=== PATIENT | male | born 1940 | race Hispanic/Latino ===

== ENCOUNTER → 2018-07-16 | Outpatient (CLI) | payer MEDICARE ==
[~2018-07-16] MED LIST: REGADENOSON 0.4 MG/5 ML SYR IV ONE
== END ==
LOC: NM 08:42
PROVIDERS: ATTEND Internal Medicine Cardiovascular Disease
DX: R07.2 Precordial pain (principal)
CPT/HCPCS: 78452; 93017; A9502; J2785

== ENCOUNTER 2018-07-30 07:34 | Inpatient (IN) | payer MEDICARE ==
[~2018-07-30] VITALS: Ht 185.4 cm; Wt 98.9 kg
[~2018-07-30 07:34] MED LIST changes: +ASPIR 8181 MG PO; +ATORVASTATIN CA20 MG PO; +AVODART0.5 MG PO; +ETODOLAC500 MG PO; +FLOMAX0.4 MG PO; +LISINOPRIL2.5 MG PO; +NAMENDA10 MG PO; -REGADENOSON 0.4 MG/5 ML SYR IV ONE; +ROPIVACAINE 246.25 MG, EPINEPHRINE HCL 1:1000 1ML 0.5 MG, CLONIDINE HCL 0.08 MG, KETORO... INJ ONE
--- OUTSIDE RECORDS SUMMARY | 2018-07-30 07:37 | XMS REPORT | Clinical Summary ---
Author Author [facility] Organization [facility] Address Unknown Phone Unavailable Care Team Providers Care Landman Name Role Phone Arsh Rios MD PCP Allergies No Known Allergies Medications End Date Status Medication Sig Dispensed Refills Start Date Active metoprolol tartrate Take 50 mg by 0 (LOPRESSOR) 50 mg tablet mouth 2 (two) times a day. Active tamsulosin (FLOMAX) 0.4 Take 0.4 mg 0 mg capsule,extended by mouth release 24hr daily. Active aspirin (ECOTRIN) 81 MG Take 81 mg by 0 enteric coated tablet mouth daily. Active dutasteride (AVODART) 0.5 Take 0.5 mg 0 mg capsule by mouth daily. Active cilostazol (PLETAL) 100 Take 100 mg 0 MG tablet by mouth 2 (two) times a day. Active lisinopril Take 5 mg by 0 (PRINIVIL,ZESTRIL) 5 mg mouth daily. tablet Active acetaminophen (TYLENOL 8 Take 650 mg 0 HOUR) 650 MG 8 hr tablet by mouth 2 (two) times a day. Active folic Take 1 tablet 0 acid/multivit-min/lutein by mouth (CENTRUM SILVER ORAL) daily. Active memantine (NAMENDA) 10 MG Take 10 mg by 0 tablet mouth 2 (two) times a day. Active atorvastatin (LIPITOR) 20 Take 20 mg by 0 MG tablet mouth nightly. 08/04/2017 mupirocin (BACTROBAN) 2 % Apply 60 g 2 ointment topically 2 8 (two) times a day for 10 days. 08/04/2017 doxycycline (VIBRA-TABS) Take 1 tablet 20 tablet 0 100 MG tablet (100 mg 8 total) by mouth 2 (two) times a day for 10 days. 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 Hospital Procedural Cardiology Encounter Juan R Gomez MD Accidental drug overdose, initial encounter (Primary Dx) 05/14/2018 Emergency Emergency Medicine Richard Magallon MD PhD 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 Hospital Procedural Cardiology Encounter Richard Magallon MD PhD Cryptogenic stroke (HCC) 03/20/2018 Hospital Procedural Cardiology Encounter Richard Magallon MD PhD Cryptogenic stroke (HCC) 02/18/2018 Hospital Procedural Cardiology Encounter Richard Magallon MD PhD Cryptogenic stroke ([facility]) 01/19/2018 Hospital Procedural Cardiology Encounter Richard Magallon MD PhD Cryptogenic stroke 12/20/2017 Hospital Procedural Cardiology Encounter Richard Magallon MD PhD Cryptogenic stroke 11/20/2017 Hospital Procedural Cardiology Encounter Richard Magallon MD PhD Cryptogenic stroke 10/21/2017 Hospital Procedural Cardiology Encounter Richard Magallon MD PhD Cryptogenic stroke 09/21/2017 Hospital Procedural Cardiology Encounter Richard Magallon MD PhD Cryptogenic stroke 08/22/2017 Hospital Procedural Cardiology Encounter after 07/29/2017 Social History Date Tobacco Use Types Packs/Day Years Used Never Smoker Smokeless Tobacco: Never Used Alcohol Use Drinks/Week oz/Week Comments Yes Sex Assigned at Date Recorded Not on file Industry Job Start Date Occupation Not on file Not on file Not on file Travel End Travel History Travel Start No recent travel history available. Last Filed Vital Signs Time Taken Vital Sign Reading 05/14/2018 10:38 AM BRAKE COUPLER DINKEY Blood Pressure 136/63 05/14/2018 10:38 AM BRAKE COUPLER DINKEY Pulse 64 05/14/2018 10:10 AM BRAKE COUPLER DINKEY Temperature 36.7 C (98 F) 05/14/2018 10:38 AM BRAKE COUPLER DINKEY Respiratory Rate 18 05/14/2018 10:38 AM BRAKE COUPLER DINKEY Oxygen Saturation 96% - Inhaled Oxygen - Concentration - Weight - - Height - - Body Mass Index - Plan of Treatment Health Maintenance Due Date Last Done Comments SHINGLES VACCINES (#1) 08/07/1989 65+ PNEUMOCOCCAL VACCINE 08/07/2004 (1 of 2 - PCV13) PNEUMOCOCCAL 08/07/2004 POLYSACCHARIDE VACCINE AGE 65 AND OVER INFLUENZA VACCINE 11/07/2018 Implants Device Identifier Shelf Expiration Date Model / Serial / Lot Implanted Type Area Manufactur er 06/06/2018 [id number] / / [id number] System Reveal Linq W/Monitors - Cardiac N/A: N/A [employer]TR[employer] [id number] Pacemakers CARDIAC Implanted: 07/23/2017 (Quantity not and RHYTHM on file) Related DISEASE Products MGMT 07/07/2017 [id number] / / [id number] Device Vasclr Clsr Vasoactive Cardiovasc N/A: N/A Intstnl Peptd 6fr Angio-Seal - ular [id number] Implants Implanted: 09/19/2016 (Quantity not on file) 03/08/2018 [id number] / / [id number] Device Vasclr Clsr Vasoactive Cardiovasc N/A: N/A Intstnl Peptd 6fr Angio-Seal - ular [id number] Implants Implanted: 07/24/2017 (Quantity not on file) [id number] / / Catheter Angio Cleat Layer Ii 5fr 100cm Surgical N/A: N/A [facility] Selc Braidd Torque Alex - [id number] Implants; PERIPHERAL Implanted: 09/19/2016 (Quantity not Expanders; INTERVENTI on file) Extenders; ON Surgical VASCULAR Wires SREEDHAR [id number] / / Catheter Angiography Diag [facility] Surgical N/A: N/A C Torque Cleat Layer Ii 5fr 100cm - Implants; PERIPHERAL [id number] Expanders; INTERVENTI Implanted: 07/24/2017 (Quantity not Extenders; ON on file) Surgical VASCULAR Wires SREEDHAR Procedures Comments Procedure Name Priority Date/Time Associated Diagnosis CV PACEMAKER DEFIB ILR Routine 07/22/2018 Cryptogenic stroke (HCC) INTERROGATION 8:26 AM CDT CV LOOP RECORDER MONITOR Routine 05/27/2018 Cryptogenic stroke (HCC) EVAL <30DAYS 4:38 PM BRAKE COUPLER DINKEY CV LOOP RECORDER MONITOR Routine 04/29/2018 Cryptogenic stroke (HCC) EVAL <30DAYS 3:59 PM BRAKE COUPLER DINKEY CV LOOP RECORDER MONITOR Routine 03/29/2018 Cryptogenic stroke (HCC) EVAL <30DAYS 1:06 PM BRAKE COUPLER DINKEY CV LOOP RECORDER MONITOR Routine 02/01/2018 Cryptogenic stroke (HCC) EVAL <30DAYS 11:09 AM CDT CV LOOP RECORDER MONITOR Routine 01/03/2018 Cryptogenic stroke (HCC) EVAL <30DAYS 3:28 PM CDT CV LOOP RECORDER MONITOR Routine 11/26/2017 Cryptogenic stroke EVAL <30DAYS 1:17 PM CDT CV LOOP RECORDER MONITOR Routine 10/27/2017 Cryptogenic stroke EVAL <30DAYS 1:59 PM CDT CV LOOP RECORDER MONITOR Routine 09/27/2017 Cryptogenic stroke EVAL <30DAYS 8:55 AM CDT CV LOOP RECORDER MONITOR Routine 08/24/2017 Cryptogenic stroke EVAL <30DAYS 1:03 PM CDT after 07/29/2017 Results * CV pacemaker defib or ilr interrogation (07/22/2018 8:26 AM CDT) Narrative Performed At Performing Organization Address [facility] Phone Number [facility] [address] [place] [address] * CV pacemaker defib or ilr interrogation (05/27/2018 4:38 PM BRAKE COUPLER DINKEY) Narrative Performed At Performing Organization Address [facility] Phone Number [facility] [address] [place] [address] * CV pacemaker defib or ilr interrogation (04/29/2018 3:59 PM BRAKE COUPLER DINKEY) Narrative Performed At Performing Organization Address [facility] Phone Number [facility] [address] [place] [address] * Cv pacemaker defib or ilr interrogation (01/03/2018 3:28 PM CDT) Narrative Performed At Performing Organization Address [facility] Phone Number [facility] [address] [place] [address] * Cv pacemaker defib or ilr interrogation (09/27/2017 8:55 AM CDT) Narrative Performed At Performing Organization Address [facility] Phone [facility] [address] [place] [address] * Cv pacemaker defib or ilr interrogation (08/24/2017 1:03 PM CDT) Narrative Performed At Performing Organization Address City/State/Zipcode Phone Number [facility] [address] [place] [address] after 07/29/2017 Insurance Payer Benefit Subscriber ID Type Phone Address Plan / Group [employer] CIGNA xxxxxxxxxxx HMO [employer]ALTH[employer]I NG HMO MCR ADV Advance Directives Patient has advance care planning documents on file. For more information, neyda genao contact: Kirill Ferrari [address] [place] [address]
--- OUTSIDE RECORDS SUMMARY | 2018-07-30 07:37 | XMS REPORT ---
Author [facility] Address Unknown Phone Unavailable Care Team Providers Care Repairer Name Role Phone Unavailable Unavailable Payers Payer Name Policy Type Policy Number Effective Date Expiration Date Problems This patient has no known problems. Allergies, Adverse Reactions, Alerts Allergy Name Allergy Type Status Severity Reaction(s) Onset Date Inactive Date Treating Clinician Comments No Known Allergies DA Active U 2014-08-10 00:00:00 Medications This patient has no known medications. Results Test Description Test Time Test Comments Text Results Atomic Results Result Comments - DUP VEIN ANTHONY 2018-06-27 15:11:00 Name: ARIAS MEDEL [facility] : 1940 Age/S: 77 / M [address] [facility] Unit #: [id number] Loc: [place] [address] Phys: Tierra Ferguson MD Acct: [id number] Dis Date: Status: REG RCR PHONE #: [phone] Exam Date: 06/26/2018 1620 FAX #: [phone] Reason: VARICOSE VEINS AND ULCER EXAMS: CPT CODE: [id number] DUP VEIN ANTHONY [id number] EXAM: Bilateral venous Doppler study; INFORMATION: Venous insufficiency; varicose veins and ulcers; outpatient care; TECHNIQUE an findings: Grayscale and imaging of the venous system of the lower extremities was combined with color Doppler sonography and spectral analysis. Right leg: All vessels including the common femoral vein, the greater saphenous vein, the superficial and deep femoral veins, the popliteal vein and the posterior tibial veins are compressible and patent; there are no interval and phasic with respiration; no thrombosis. The saphenous femoral junction measures 13 mm in diameter. Reflux was noticed at this level over 2815 ms. The greater saphenous vein measured 2.3 mm. Venous reflux was noticed approximately over 936 ms. No reflux was noticed in the mid and distal portion of the thigh. The greater saphenous vein below the knee measured 3.6 mm proximally and reflux was noticed over 1002 ms. No reflux was noticed in the mid and distal portion of the infrapopliteal GSD. The smaller saphenous vein measured 2.6-2.7 mm and showed reflux over 1294 ms proximally and 1168 ms in the midportion. A underwriting specialist vein measured 7 mm with reflux over 1063 ms. Left leg: All veins including the common femoral vein, the superficial and deep femoral vein, the greater saphenous vein, the popliteal vein and the posterior tibial vein were compressible, phasic with respiration and augmentation. No thrombus was noticed. The saphenous femoral junction measured 13 mm and reflux was noticed over 4104 ms. The greater saphenous vein measures 7.6 mm proximally, with reflux over 1134 ms; the midportion of the greater saphenous vein measured 3.8 mm and reflux was noticed over 1327 ms; the distal greater saphenous vein measured 3.7 mm and reflux was noticed over 2694 ms. The infrapopliteal region SMV measured 3.7 mm proximally and reflux was noticed over 6 on 22 ms. No reflux in the midportion of the infrapopliteal G is 3. The distal G is very measured 4 mm and showed reflux over 440 ms. PAGE 1 Signed Report (CONTINUED) Name: ARIAS MEDELULVEDA [facility] : 1940 Age/S: 77 / M [address] [facility] Unit #: [id number] Loc: [place] [address] Phys: Tierra Ferguson MD Acct: [id number] Dis Date: Status: REG RCR PHONE #: [phone] Exam Date: 06/26/2018 1620 FAX #: [phone] Reason: VARICOSE VEINS AND ULCER EXAMS: CPT CODE: [id number] DUP VEIN ANTHONY [id number] <Continued> The small saphenous vein measured 3.4 mm proximally and showed reflux over 1961 ms. No reflux was noticed distally. No reflux was noticed within left underwriting specialist veins. IMPRESSION: 1. The venous system of both lower extremities is patent and without evidence of thrombosis. 2. Significant reflux was noticed in both greater saphenous veins as detailed above. Significant reflux was also noticed in both smaller saphenous veins. at 1511 Reported and signed by: Mio Ruano M.D. CC: Arsh Izaguirre MD; Tierra Ferguson MD Technologist: MARILU GALLO RVT [facility] Date/Time: 06/27/2018 (1511) [email or web address] Orig Print D/T: S: 06/27/2018 (2170) Probe: PAGE 2 Signed Report
[2018-07-30] MEDS ORDERED: BUPIVACAINE 7.5MG/ML /DEXTROSE 82.5MG/ML 2 ML AMP INJ ONE (08:07)
[2018-07-30] MEDS ORDERED: GABAPENTIN 300 MG CAP ONE (08:21)
[2018-07-30] MEDS ORDERED: DEXAMETHASONE SOD PHOS 10 MG/1 ML VIAL ONE (08:21)
[2018-07-30] MEDS ORDERED: CEFAZOLIN SOD 2 GM/D5W 50ML 50 ML IV ONE (08:21)
[2018-07-30] MEDS ORDERED: CELECOXIB 200 MG CAP ONE (08:21)
[2018-07-30] MEDS ORDERED: VANCOMYCIN HCL 1 GM VIAL ONE (09:04)
[2018-07-30] MEDS ORDERED: VANCOMYCIN HCL 500 MG ONE (09:04)
[2018-07-30] MEDS ORDERED: BACITRACIN 50,000 UNIT VIAL ONE ×2 (09:04→09:19)
[2018-07-30] MEDS ORDERED: SODIUM CHLORIDE 0.9% 500ML 500 ML ONE (09:05)
[2018-07-30] MEDS ORDERED: TRANEXAMIC ACID 1,000 MG/10 ML ML ONE (09:05)
[2018-07-30] MEDS: SODIUM CHLORIDE 0.9% 1000ML 1,000 ML IV SCH ×2 (11:22→22:11)
[2018-07-30] MEDS ORDERED: HYDROCODONE/APAP 7.5MG-325MG 1 EA TAB PO PRN (11:30)
[2018-07-30] MEDS ORDERED: HYDROCODONE/APAP 5MG-325MG TAB PO PRN (11:30)
[2018-07-30] MEDS ORDERED: ONDANSETRON HCL INJ 2MG/ML 2ML 2 MG/ML VIAL IV PRN (11:30)
[2018-07-30] MEDS ORDERED: DOCUSATE SODIUM 100 MG CAP PO PRN (11:30)
[2018-07-30] MEDS ORDERED: KETOROLAC TROMETHAMINE 30 MG/ML VIAL IV PRN (11:30)
[2018-07-30] MEDS ORDERED: PROMETHAZINE HCL (IM) 25 MG/ML VIAL IM PRN (11:30)
[2018-07-30] MEDS ORDERED: DIPHENHYDRAMINE HCL INJ 50 MG/ML VIAL IM/IV PRN (11:30)
[2018-07-30] MEDS ORDERED: ACETAMINOPHEN 650 MG SUPP PR PRN (11:30)
[2018-07-30] MEDS ORDERED: MEPERIDINE HCL INJ 25 MG/ML VIAL ONE (11:33)
--- OUTSIDE RECORDS SUMMARY | 2018-07-30 11:44 | XMS REPORT | Clinical Summary ---
Author Author [facility] Address Unknown Phone Unavailable Care Team Providers Care Manager [place] Name Role Phone Arsh Rios MD PCP [...] Encounter Richard Magallon MD PhD Cryptogenic stroke ([facility]) 01/19/2018 Hospital Procedural Cardiology Encounter Richard Magallon [...] Taken Vital Sign Reading 05/14/2018 10:38 AM BEATER WORKER HELPER Blood Pressure 136/63 05/14/2018 10:38 AM BEATER WORKER HELPER Pulse 64 05/14/2018 10:10 AM BEATER WORKER HELPER Temperature 36.7 C (98 F) 05/14/2018 10:38 AM BEATER WORKER HELPER Respiratory Rate 18 05/14/2018 10:38 AM BEATER WORKER HELPER Oxygen Saturation 96% - Inhaled Oxygen - [...] Area Manufactur er 06/06/2018 [id number] / / [id number] System Reveal Linq W/Monitors - Cardiac N/A: N/A [employer] [id number] Pacemakers CARDIAC Implanted: 07/23/2017 (Quantity not and RHYTHM on file) Related DISEASE Products MGMT 07/07/2017 [id number] / / [id number] Device Vasclr Clsr Vasoactive Cardiovasc N/A: N/A Intstnl Peptd 6fr Angio-Seal - ular [id number] Implants Implanted: 09/19/2016 (Quantity not on file) 03/08/2018 [id number] / / [id number] Device Vasclr Clsr Vasoactive Cardiovasc N/A: N/A Intstnl Peptd 6fr Angio-Seal - ular [id number] Implants Implanted: 07/24/2017 (Quantity not on file) [id number] / / Catheter Angio Image Processing Engineer Ii 5fr 100cm Surgical N/A: N/A [facility] Selc Braidd Torque Alex - [id number] Implants; PERIPHERAL Implanted: 09/19/2016 (Quantity not Expanders; INTERVENTI on file) Extenders; ON Surgical VASCULAR Wires SREEDHAR [id number] / / Catheter Angiography Diag [facility] Surgical N/A: N/A C Torque Image Processing Engineer Ii 5fr 100cm - Implants; PERIPHERAL [id number] Expanders; INTERVENTI Implanted: 07/24/2017 (Quantity not Extenders; ON on file) Surgical VASCULAR Wires SREEDHAR Procedures Comments Procedure Name Priority Date/Time Associated Diagnosis CV PACEMAKER DEFIB ILR Routine 07/22/2018 Cryptogenic stroke (HCC) INTERROGATION 8:26 AM CDT CV LOOP RECORDER MONITOR Routine 05/27/2018 Cryptogenic stroke (HCC) EVAL <30DAYS 4:38 PM BEATER WORKER HELPER CV LOOP RECORDER MONITOR Routine 04/29/2018 Cryptogenic stroke (HCC) EVAL <30DAYS 3:59 PM BEATER WORKER HELPER CV LOOP RECORDER MONITOR Routine 03/29/2018 Cryptogenic stroke (HCC) EVAL <30DAYS 1:06 PM BEATER WORKER HELPER CV LOOP RECORDER MONITOR Routine 02/01/2018 Cryptogenic [...] CDT) Narrative Performed At Performing Organization Address [facility] Phone Number [facility] [address] [place] [address] * CV pacemaker defib or ilr interrogation (05/27/2018 4:38 PM BEATER WORKER HELPER) Narrative Performed At Performing Organization Address [facility] Phone Number [facility] [address] [place] [address] * CV pacemaker defib or ilr interrogation (04/29/2018 3:59 PM BEATER WORKER HELPER) Narrative Performed At Performing Organization Address [facility] Phone Number [facility] [address] [place] [address] * Cv pacemaker defib or ilr interrogation (01/03/2018 3:28 PM CDT) Narrative Performed At Performing Organization Address [facility] Phone Number [facility] [address] [place] [address] * Cv pacemaker defib or ilr interrogation (09/27/2017 8:55 AM CDT) Narrative Performed At Performing Organization Address [facility] Phone Number [facility] [address] [place] [address] * Cv pacemaker defib or ilr interrogation (08/24/2017 1:03 PM CDT) Narrative Performed At Performing Organization Address City/State/Zipcode Phone Number [facility] [address] [place] [address] after 07/29/2017 Insurance Payer Benefit Subscriber ID Type Phone Address Plan / Group [employer] CIGNA xxxxxxxxxxx HMO [employer]PRI NG HMO MCR ADV Advance Directives Patient has advance care planning documents on file. For more information, neyda genao contact: Kirill Ferrari [address] [place] [address]
[2018-07-30] MEDS: ACETAMINOPHEN 1000 MG/100 ML IV SCH ×3 (12:00→23:59)
--- NOTE | 2018-07-30 12:58 | NUR ---
ARRIVED VIA STRETCHER FROM PACU, AA&OX3, 2L AT THIS TIME, IV TO L HAND INTACT, R HIP DRESSING CDI, DTV, RUFINO HOSE TO LLE IN PLACE, ORIENTED TO ROOM AND CALL LIGHT SYSTEM, CALL LIGHT WITHIN REACH, FAMILY AT SIDE
--- NOTE | 2018-07-30 13:23 | Diagnostic Imaging Report ---
Exam: AP pelvis History: Pain Comparison: None. Findings: See impression Impression: Right total hip arthroplasty with postsurgical change. No complication. Signed by: Dr. Kj Puente M.D. on 07/30/2018 1:19 PM
[2018-07-30 14:01] VITALS: BP 126/69
[2018-07-30 14:08] VITALS: BP 135/63
--- NOTE | 2018-07-30 15:00 | NUR ---
TOLERATING PO, DENIES PAIN AT THIS TIME, R HIP DRESSING CDI, CALL LIGHT WITHIN REACH
--- NOTE | 2018-07-30 15:56 | Operative Report ---
DATE OF PROCEDURE: 07/30/2018 SURGEON: Sergio Crocker MD BLOW MOLD MACHINE OPERATOR: Vishnu Arboleda, certified PA. PREOPERATIVE DIAGNOSIS: Osteoarthritis, right hip. POSTOPERATIVE DIAGNOSIS: Osteoarthritis, right hip. PROCEDURE: Right total hip arthroplasty. INDICATIONS: The patient is a 77-year-old gentleman, who has osteoarthritis involving his right knee and right hip. We have discussed the findings and options and planned on a right total hip replacement. The risks and benefits of the procedure have been discussed. He and his family state they understand and wished to proceed. PROCEDURE IN DETAIL: The patient was brought to the operating room and placed under general anesthetic. A spinal anesthetic was attempted, but unsuccessful. He was positioned in the left lateral decubitus position. His right hip was prepped and draped in a sterile manner. A preoperative time-out was performed. A posterior approach was made to the right hip. Care was taken to avoid injury to the sciatic nerve. Hemostasis was obtained with electrocautery. A deep self-retaining Charnley retractor was placed. The posterior capsule was exposed. A large plexus of veins was noted around the posterior capsule. Time and care were taken to cauterize and ligate these vessels to minimize bleeding. The short external rotators and the posterior capsule were released. The hip was dislocated and an oscillating saw was used to resect the femoral head. Complete loss of articular cartilage was noted. Acetabular retractors were carefully placed. The remnant of the labrum was excised. The true floor of the acetabulum was established with a 46 mm reamer. The socket was then sequentially reamed to 55 mm. This accomplished hemispherical bleeding cancellous bone. A Vy [employer]omet OsseoTi 56 mm outer diameter socket was seated. On several occasions, the hip had been thoroughly irrigated with a shower tip pulsatile lavage and a spray mixture of polymyxin and vancomycin diluted in saline. Good fixation was felt to obtained. Fixation was augmented with a single 25 mm cancellous screw placed into the ilium. A highly cross-linked polyethylene liner with a 36 mm inner diameter was then seated into place. Care was taken to make sure that there was no evidence of soft tissue interposition. The socket was packed with a moistly soaked lap sponge and attention was directed toward the proximal femur. A box cutting osteotome and taper pin reamer were used to establish entry to the femoral canal. The stem was then sequentially seated with the broaches up until a 13 mm broach. This provided a good canal fill and rotational stability. A trial reduction was performed. A standard 36 mm head provided appropriate soft tissue balancing, stability, and anglican of limb length. The trial implants were removed. The hip was further irrigated with a shower tip pulsatile lavage. The set stem was seated in the head was placed onto the stem. A final reduction was performed. The posterior capsule was carefully repaired using interrupted #2 Ethibond. The iliotibial band and gluteal fascia were closed with #2 Ethibond. The skin was closed with subcuticular Vicryl and danna. A sterile Aquacel bandage was applied. He was returned to the supine position, extubated and transported to the recovery room in stable condition. Blood loss was approximately 150 mL. All needle and sponge counts were correct. Sergio Crocker MD DR/MAYTE /[id number]
[2018-07-30] MEDS: CELECOXIB 200 MG CAP PO SCH (16:27)
[2018-07-30] MEDS: ASPIRIN 325 MG TAB PO SCH (16:27)
[2018-07-30] MEDS: CEFAZOLIN SOD 1 GM/NS 50ML 50 ML IV SCH (16:27)
--- NOTE | 2018-07-30 16:33 | NUR ---
DENIES PAIN AT THIS TIME, CALL LIGHT WITHIN REACH
[2018-07-30] MEDS ORDERED: CELECOXIB 100 MG CAP PO SCH (17:00)
[2018-07-30 17:57] VITALS: BP 108/53
[2018-07-30 19:30] VITALS: BP 108/53
[2018-07-30] MEDS ORDERED: FENTANYL CITRATE/PF 100MCG/2 ML INJ ONE (19:31)
[2018-07-30] MEDS ORDERED: SEVOFLURANE INHAL SOLN 250 ML PEN BTL ONE (19:43)
[2018-07-30] MEDS ORDERED: LIDOCAINE HCL 2% LOCAL INJ 5 ML SDV VIAL INJ ONE (19:43)
[2018-07-30] MEDS ORDERED: ONDANSETRON HCL INJ 2MG/ML 2ML 2 MG/ML VIAL ONE (19:43)
[2018-07-30] MEDS ORDERED: PROPOFOL IV EMULSION 10 MG/ML 20 ML VIAL ONE (19:43)
[2018-07-30] MEDS ORDERED: ROCURONIUM BROMIDE 10 MG/ML 5ML VIAL ONE (19:43)
[2018-07-30 20:00] VITALS: BP 106/57
[2018-07-30] MEDS ORDERED: ZOLPIDEM TARTRATE 5 MG TAB PO PRN (21:00)
[2018-07-31] VITALS: BP 106/55
[2018-07-31] MEDS: CEFAZOLIN SOD 1 GM/NS 50ML 50 ML IV SCH ×2 (01:36→07:46)
[2018-07-31] MEDS: ACETAMINOPHEN 1000 MG/100 ML IV SCH ×2 (01:42→05:04)
[2018-07-31 04:00] VITALS: BP 114/58
[2018-07-31 06:20] LABS: HEMATOCRIT 32.3 % (38.2-49.6); HEMOGLOBIN 10.9 g/dL (14.0-18.0)
[2018-07-31] MEDS: SODIUM CHLORIDE 0.9% 1000ML 1,000 ML IV SCH (07:22)
--- NOTE | 2018-07-31 07:25 | NUR ---
Rcvd patient in report this am. Patient is asleep in bed at this time. No s/s of distress noted
[2018-07-31] MEDS: CELECOXIB 200 MG CAP PO SCH (08:27)
[2018-07-31] MEDS: ASPIRIN 325 MG TAB PO SCH (08:27)
[2018-07-31 09:11] VITALS: BP 114/55
[2018-07-31] MEDS ORDERED: ASPIRIN325 MG PO (09:55)
[2018-07-31] MEDS ORDERED: NORCO 7.5-3251 EACH PO (09:55)
[2018-07-31] MEDS ORDERED: ONDANSETRON HCL 4 MG ORAL DISINTEGRATING TAB PO PRN (10:15)
--- NOTE | 2018-07-31 10:20 | NUR ---
DR GAUTAM OFFICE PREARRANGED FOLLOWING DISCHARGE PLAN OF: HOME HEALTH WITH [facility] [phone] CONFIRMED WITH ALZIA ROSAS 3 IN ONE COMMODE. AND ROLLING WALKER WITH WHEELS. PROVIDED BY THERAPY SUPPLY HOUSE CONFIRMED WITH [employer] ALL EQUIPEMENT DELIVERED 07/29/2018 GAVE COPY OF ORDERS TO FOLLOW UP OUTPATIENT IF ANY QUESTIONS AND FILED IN CHART. IMM SIGNED AND ON CHART COPY LEFT WITH PATIENT GAVE CARD FOR QUESTIONS AND OR CONCERNS.
[2018-07-31 11:06] VITALS: BP 114/55
[2018-07-31] MEDS ORDERED: ACETAMINOPHEN 1000 MG/100 ML IV PRN (11:30)
--- NOTE | 2018-07-31 11:40 | Consultation ---
DATE OF CONSULTATION: REASON FOR CONSULTATION: Postop medical management. HISTORY OF PRESENT ILLNESS: The patient is a gentleman, status post right hip arthroplasty with minimal pain in the hip. Denies any fever, chills, nausea, vomiting, shortness of breath, headache, or chest pain on review of systems. PAST MEDICAL HISTORY: Hyperlipidemia, dementia, BPH, and hypertension. MEDICATIONS: See MAR. ALLERGIES: NONE. SOCIAL HISTORY: , lives at home with his . FAMILY HISTORY: Noncontributory. PHYSICAL EXAMINATION: VITAL SIGNS: Temperature 96.8, pulse 59, blood pressure 106/57, and sats 95% on room air. GENERAL: No apparent distress. NECK: Supple. LUNGS: Clear to auscultation bilaterally. CARDIOVASCULAR: Regular rate and rhythm. ABDOMEN: Good bowel sounds. Soft, nontender. EXTREMITIES: No clubbing or cyanosis. NEUROLOGIC: Nonfocal. ASSESSMENT AND PLAN: 1. Right hip pain. Continue with physical therapy. 2. Anemia. Check CBC. 3. Hypertension. Continue with his medications at discharge. 4. Hyperlipidemia. Continue with his medications at discharge. 5. Benign prostatic hypertrophy. Continue his medications at discharge. Please see hospital chart for full details. MD SNEHA Ingram/MAYTE /[id number]
--- NOTE | 2018-07-31 11:59 | NUR ---
Patient is AAOx3. Patient lung huffman clear to auscultation. Bowel sounds present x4. Patient passing gas. Patient is post op right hip replacement. Dressing clean and dry to hip. No c/o pain. Patient ambulated with therapy. Moderate assist needed. Language barrier noted. Family at bedside
[2018-07-31 12:40] VITALS: BP 112/55
--- NOTE | 2018-07-31 13:24 | NUR ---
Removed IV from left hand. Pressure dressing applied.
--- NOTE | 2018-07-31 13:37 | NUR ---
Patient discharged from facility to home. Patient assisted out via staff in wheelchair. Reviewed all discharge instructions via translation. Reviewed RX's, follow up appts and all discharge instructions for his hip. Patient and family verbalized understanding
--- NOTE | 2018-07-31 15:08 | NUR ---
IMM EXPLAINED, SIGNED BY PT'S AT BEDSIDE (AT PT'S REQUEST) AND PLACED IN CHART COPY TO PT IN CARE TRANSITION FOLDER
== END 2018-07-31 13:38 | disposition home health service (06) | DRG 470 ==
LOC: OR 07:34 → PACU V 11:25 → MED/SURG 13:17
PROVIDERS: ADMIT Specialist; ATTEND Specialist
PROC: 0SR904A Replacement of Right Hip Joint with Ceramic on Polyethylene Synthetic Substitute, Uncemented, Open Approach (ICD-10-PCS; principal; 2018-07-30 09:34)
DX: M16.11 Unilateral primary osteoarthritis, right hip (principal); M17.0 Bilateral primary osteoarthritis of knee; I10 Essential (primary) hypertension; Z86.73 Personal history of transient ischemic attack (TIA), and cerebral infarction without residual deficits
CPT/HCPCS: 36415; 72170; 85014; 85018; 86850; 86900; 86920; 97139; C1713; J0171; J0690; J1100; J1885; J2001; J2175; J2405; J2795; J3370; J7030; J7040

== ENCOUNTER 2018-09-24 07:34 | Observation (INO) | payer MEDICARE ==
[2018-09-23 12:11] LABS: BASOPHILS # (AUTO) 0.1 (0.0-0.1); BASOPHILS % 0.8 % (0.0-1.0); EOSINOPHILS # (AUTO) 0.2 (0.0-0.4); EOSINOPHILS % 3.6 % (0.0-6.0); HEMATOCRIT 36.3 % (38.2-49.6); LYMPHOCYTES % 29.7 % (18.0-39.1); MEAN CORPUSCULAR HEMOGLOBIN 32.1 pg (28-32); MEAN CORPUSCULAR HGB CONC 33.1 g/dL (31-35); MEAN CORPUSCULAR VOLUME 97.1 fL (81-99); MONOCYTES # (AUTO) 0.8 (0.2-0.8); MONOCYTES % 12.4 % (4.4-11.3); NEUTROPHILS # (AUTO) 3.5 (2.1-6.9); NEUTROPHILS % 52.9 % (38.7-80.0); PLATELET COUNT 151 x10e3/uL (140-360); RED BLOOD COUNT 3.74 x10e6/uL (4.3-5.7); RED CELL DISTRIBUTION WIDTH 12.9 % (11.7-14.4)
[~2018-09-24] VITALS: Ht 185.4 cm; Wt 90.7 kg
[~2018-09-24 07:34] MED LIST changes: +ASPIRIN325 MG PO; +NORCO 7.5-3251 EACH PO
--- OUTSIDE RECORDS SUMMARY | 2018-09-24 07:37 | XMS REPORT | Clinical Summary ---
Author Author [facility] [place] [facility] Address Unknown Phone Unavailable Care Team Providers Care Bill Adjuster Name Role Phone Arsh Rios MD PCP [...] mg by 0 MG tablet mouth nightly. 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 Hospital Procedural Cardiology Encounter Richard Magallon MD PhD Cryptogenic stroke 12/20/2017 Hospital Procedural Cardiology Encounter Richard Magallon MD PhD Cryptogenic stroke 11/20/2017 Hospital Procedural Cardiology Encounter Richard Magallon MD PhD Cryptogenic stroke 10/21/2017 Hospital Procedural Cardiology Encounter after 09/23/2017 Social History Date Tobacco Use Types Packs/Day [...] Taken Vital Sign Reading 05/14/2018 10:38 AM EQUIPMENT STERILIZER Blood Pressure 136/63 05/14/2018 10:38 AM EQUIPMENT STERILIZER Pulse 64 05/14/2018 10:10 AM EQUIPMENT STERILIZER Temperature 36.7 C (98 F) 05/14/2018 10:38 AM EQUIPMENT STERILIZER Respiratory Rate 18 05/14/2018 10:38 AM EQUIPMENT STERILIZER Oxygen Saturation 96% - Inhaled Oxygen - Concentration - Weight - - Height - - Body Mass Index - Plan of Treatment Health Maintenance Due Date Last Done Comments SHINGLES VACCINES (#1) 08/07/1989 65+ PNEUMOCOCCAL VACCINE 08/07/2004 (1 of 2 - PCV13) INFLUENZA VACCINE 11/07/2018 Implants Device Identifier Shelf Expiration Date Model / Serial / Lot Implanted Type Area Manufactur er 06/06/2018 [id number] / / [id number] System Reveal Linq W/Monitors - Cardiac N/A: N/A [employer] [id number] Pacemakers CARDIAC Implanted: 07/23/2017 (Quantity not and RHYTHM on file) Related DISEASE Products MGMT 07/07/2017 [id number] / / [id number] Device Vasclr Clsr Vasoactive Cardiovasc N/A: N/A Intstnl Peptd 6fr Angio-Seal - ular [id number] Implants Implanted: 09/19/2016 (Quantity not on file) 03/08/2018 [id number] / / [id number] Device Vasclr Clsr Vasoactive Cardiovasc N/A: N/A Intstnl Peptd 6fr Angio-Seal - ular [id number] Implants Implanted: 07/24/2017 (Quantity not on file) [id number] / / Catheter Angio Index Editor Ii 5fr 100cm Surgical N/A: N/A [facility] [place] Torque Carson - [id number] Implants; PERIPHERAL Implanted: 09/19/2016 (Quantity not Expanders; INTERVENTI on file) Extenders; ON Surgical VASCULAR Wires SREEDHAR [id number] / / [facility] N/A: N/A C Torque Index Editor Ii 5fr 100cm - Implants; PERIPHERAL [id number] Expanders; INTERVENTI Implanted: 07/24/2017 (Quantity not Extenders; ON on file) Surgical VASCULAR Wires SREEDHAR Procedures Comments Procedure Name Priority Date/Time Associated Diagnosis CV PACEMAKER DEFIB ILR Routine 07/22/2018 Cryptogenic stroke (HCC) INTERROGATION 8:26 AM CDT CV LOOP RECORDER MONITOR Routine 05/27/2018 Cryptogenic stroke (HCC) EVAL <30DAYS 4:38 PM EQUIPMENT STERILIZER CV LOOP RECORDER MONITOR Routine 04/29/2018 Cryptogenic stroke (HCC) EVAL <30DAYS 3:59 PM EQUIPMENT STERILIZER CV LOOP RECORDER MONITOR Routine 03/29/2018 Cryptogenic stroke (HCC) EVAL <30DAYS 1:06 PM EQUIPMENT STERILIZER CV LOOP RECORDER MONITOR Routine 02/01/2018 Cryptogenic [...] Cryptogenic stroke EVAL <30DAYS 8:55 AM CDT after 09/23/2017 Results * CV pacemaker defib or ilr interrogation (07/22/2018 8:26 AM CDT) Specimen Narrative Performed At Performing Organization Address [facility] Phone Number [facility] [address] [place] [address] * CV pacemaker defib or ilr interrogation (05/27/2018 4:38 PM EQUIPMENT STERILIZER) Specimen Narrative Performed At Performing Organization Address [facility] Phone Number [facility] [address] [place] [address] * CV pacemaker defib or ilr interrogation (04/29/2018 3:59 PM EQUIPMENT STERILIZER) Specimen Narrative Performed At Performing Organization Address [facility] Phone Number [facility] [address] [place] [address] * Cv pacemaker defib or ilr interrogation (01/03/2018 3:28 PM CDT) Specimen Narrative Performed At Performing Organization Address [facility] [place] [facility] Phone Number [facility]UP[facility] [address] [place] [address] * Cv pacemaker defib or ilr interrogation (09/27/2017 8:55 AM CDT) Specimen Narrative Performed At Performing Organization Address [facility] Phone Number [facility] [address] [place] [address] after 09/23/2017 Insurance Type Payer Benefit Subscriber ID Effective Phone Address Plan / Dates Group O [employer] CIGNA xxxxxxxxxxx [id number] [facility] [facility] MCR ADV Advance Directives Patient has advance care planning documents on file. For more information, neyda genao contact: Kirill Ferrari [address] [place] [address]
--- OUTSIDE RECORDS SUMMARY | 2018-09-24 07:37 | XMS REPORT | Continuity of Care Document ---
Author Author [facility] Interface Address Unknown Phone Unavailable Problems Problem Status Onset Date Classification Date Reported Comments Source ACUTE UTI Active 08/10/2018 [facility] URINARY ISSUES Active 08/10/2018 [facility] URINARY TRACT INFECTION, SITE NOT SPECIF Active [facility] Medications Medication Details Route Status Patient Instructions Ordering Provider Order Date Source 24 HR Metoprolol Tartrate 50 MG Extended Release Tablet [Toprol] 50 mg, 1 tab, Route: PO, Drug form: ERTAB, Daily, Start date: 08/12/18 9:00:00 CDT, Duration: 30 day, Stop date: 09/10/18 9:00:00 CDTNotes: (Same as: Toprol XL) May split tab, but do not crush. No Longer Active 08/12/2018 [facility] tamsulosin 0.4 mg, 1 cap, Route: PO, Drug form: CAP, Daily, Dosing Weight 97.727, kg, Start date: 08/12/18 9:00:00 CDT, Duration: 30 day, Stop date: 09/10/18 9:00:00 CDTNotes: (Same As: Flomax) "Do Not Crush" No Longer Active 08/12/2018 [facility] Lisinopril 5 mg, 1 tab, Route: PO, Drug form: TAB, Daily, Dosing Weight 97.727, kg, Start date: 08/12/18 9:00:00 CDT, Duration: 30 day, Stop date: 09/10/18 9:00:00 CDTNotes: (Same as: Prinivil, Zestril) No Longer Active 08/12/2018 [facility] Memantine 10 mg, 2 tab, Route: PO, Drug form: TAB, BID, Dosing Weight 97.727, kg, Start date: 08/11/18 17:00:00 CDT, Duration: 30 day, Stop date: 09/10/18 9:00:00 CDTNotes: (Same As: Namenda) Inactive 08/11/2018 [facility] ciprofloxacin 500 mg oral tablet 500 mg, PO, BID, Began taking on 08/07/18, # 10 tab, 0 Refill(s), Pharmacy: [facility] [id number] Active 08/11/2018 [facility] Ceftriaxone 1 gm, Route: IVPB, [id number], Dosing Weight 97.727, kg, Start date: 08/10/18 23:00:00 CDT, Duration: 30 day, Stop date: 09/09/18 11:00:00 CDT, ABX Indication: Genital Tract InfectionNotes: (Same As: Rocephin). Use with 100 mL NS and infuse over 30 min MEDICATION WASTE Product Size: 1000 mg Product Wasted: ___ mg No Longer Active 08/11/2018 [facility] cilostazol 100 mg oral tablet 100, PO, BID, # 180 tab, 0 Refill(s) Active 08/11/2018 [facility] metoprolol tartrate 50 mg oral tablet 50 mg=1 tab, PO, BID, # 60 tab, 0 Refill(s) Active 08/11/2018 [facility] tamsulosin 0.4 mg, PO, Daily, 0 Refill(s) Active 08/11/2018 [facility] Acetaminophen 325 MG / Hydrocodone Bitartrate 7.5 MG Oral Tablet 1 tab, PO, Q4H, PRN Pain Score 6-10, 0 Refill(s) Active 08/11/2018 [facility] Ciprofloxacin 500 mg, PO, BID, Began taking on 08/07/18, 0 Refill(s) No Longer Active 08/11/2018 [facility] Dutasteride 0.5 MG Oral Capsule 0.5 mg=1 cap, PO, Daily, # 30 cap, 0 Refill(s) Active 08/11/2018 [facility] Memantine 10 mg, PO, BID, 0 Refill(s) Active 08/11/2018 [facility] Meclizine 12.5 mg, PO, Daily, PRN Dizziness, # 20 tab, 0 Refill(s) Active 08/11/2018 [facility] lisinopril 5 mg oral tablet 5 mg=1 tab, PO, Daily, # 90 tab, 1 Refill(s) Active 08/11/2018 [facility] Lovenox 40 mg, 0.4 mL, Route: SUB-Q, Drug form: INJ, [id number], Dosing Weight 97.727, kg, Start date: 08/10/18 16:00:00 CDT, Duration: 30 day, Stop date: 09/08/18 16:00:00 CDTNotes: (Same as: Lovenox) No Longer Active 08/10/2018 [facility] Acetaminophen 325 MG / Hydrocodone Bitartrate 5 MG Oral Tablet [Montello 5/325] 1 tab, Route: PO, Drug Form: TAB, Dosing Weight 97.727, kg, Q4H, PRN Pain Score 1-3, Start date: 08/10/18 15:32:00 CDT, Duration: 30 day, Stop date: 09/09/18 15:31:00 CDTNotes: (Same as: Montello 325/5) Do not exceed 4gm/day of acetaminophen. No Longer Active 08/10/2018 [facility] NS 1,000 mL 1,000 mL, Rate: 100 ml/hr, Infuse over: 10 hr, Route: IV, Dosing Weight 97.727 kg, Total Volume: 1,000, Start date: 08/10/18 15:32:00 CDT, Duration: 30 day, Stop date: 09/09/18 15:31:00 CDT, 2.26, m2 No Longer Active 08/10/2018 [facility] Clonidine Hydrochloride 0.1 MG Oral Tablet 0.1 mg, 1 tab, Route: PO, Drug form: TAB, Q8H, Dosing Weight 97.727, kg, PRN, Start date: 08/10/18 15:32:00 CDT, Duration: 30 day, Stop date: 09/09/18 15:31:00 CDT, SBP >160Notes: (Same As: Catapres) No Longer Active 08/10/2018 [facility] Zofran 4 mg, 2 mL, Route: IVP, Drug form: INJ, Q8H, Dosing Weight 97.727, kg, PRN as needed for nausea/vomiting, Priority: STAT, Start date: 08/10/18 15:32:00 CDT, Duration: 30 day, Stop date: 09/09/18 15:31:00 CDTNotes: (Same as: Zofran) MEDICATION WASTE Product Size: 4 mg Product Wasted: ___ mg No Longer Active 08/10/2018 [facility] Rocephin + sterile water 10 mL 1 gm, Route: IV, ONCE, Dosing Weight 97.727, kg, Priority: STAT, Start date: 08/10/18 10:26:00 CDT, Stop date: 08/10/18 10:26:00 CDT, ABX Indication: Intra-abdominal InfectionNotes: (Same As: Rocephin). Use with 100 mL NS and infuse over 30 min MEDICATION WASTE Product Size: 1000 mg Product Wasted: ___ mg Inactive 08/10/2018 [facility] Saline Flush 0.9% 10 mL, Route: IVP, Drug Form: INJ, Dosing Weight 97.727, kg, PRN, PRN Line Flush, Start date: 08/10/18 10:25:00 CDT, Duration: 30 day, Stop date: 09/09/18 10:24:00 CDTNotes: (Same as: BD Posiflush) No Longer Active 08/10/2018 [facility] Sodium Chloride 0.9% (Bolus) IV 1,000 mL, 1000 ml/hr, Infuse Over: 1 hr, Route: IV, 1,000, Drug form: INJ, ONCE, Priority: STAT, Dosing Weight 97.727 kg, Start date: 08/10/18 10:25:00 CDT, Stop date: 08/10/18 10:25:00 CDT Inactive 08/10/2018 [facility] Ondansetron 4 mg, 2 mL, Route: IVP, Drug form: INJ, ONCE, Dosing Weight 97.727, kg, Priority: STAT, Start date: 08/10/18 10:25:00 CDT, Stop date: 08/10/18 10:25:00 CDTNotes: (Same as: Zofran) MEDICATION WASTE Product Size: 4 mg Product Wasted: ___ mg Inactive 08/10/2018 [facility] Aspirin (Aspir 81) 81 Mg Tablet.dr Wetzel Active [facility] Aspirin 325 Mg Tablet Twice A Day [facility] Atorvastatin Calcium 20 Mg Tablet Bedtime Active [facility] Dutasteride (Avodart) 0.5 Mg Capsule Daily Active [facility] Etodolac 500 Mg Tablet Daily [facility] Hydrocodone Bit/Acetaminophen ([place]ello 7.5-325 Tablet) 1 Each Tablet Every 4 Hours as needed for Mild Pain (1-3) Or Fever>100.8 Active [facility] Lisinopril 2.5 Mg Tablet Daily [facility] Memantine Hcl (Namenda) 10 Mg Tablet Twice A Day [facility] Tamsulosin Hcl (Flomax*) 0.4 Mg Cap Daily Active [facility] Allergies, Adverse Reactions, Alerts Substance Category Reaction Severity Reaction type Status Date Reported Comments Source Immunizations Immunization Date Given Site Status Last Updated Comments Source Results Order Name Results Value Reference Range Date Interpretation Comments Source CHEM PANEL eGFR 100 mL/min/1.73m2 08/11/2018 Result Comment: The eGFR is calculated using the CKD-EPI formula. In most young, healthy individuals the eGFR will be >90 mL/min/1.73m2. The eGFR declines with age. An eGFR of 60-89 may be normal in some populations, particularly the elderly, for whom the CKD-EPI formula has not been extensively validated. Use of the eGFR is not recommended in the following populations: Individuals with unstable creatinine concentrations, including patients and those with serious co-morbid conditions. Patients with extremes in muscle mass or diet. The data above are obtained from the National Kidney Disease Education Program (NKDEP) which additionally recommends that when the eGFR is used in patients with extremes of body mass index for purposes of drug dosing, the eGFR should be multiplied by the estimated BMI. [facility] CHEM PANEL Potassium Lvl 3.7 meq/L 3.5 - 5.1 08/11/2018 [facility] CHEM PANEL Chloride Lvl 110 meq/L 95 - 109 08/11/2018 [facility] CHEM PANEL CO2 25 meq/L 24 - 32 08/11/2018 [facility] CHEM PANEL Creatinine Lvl 0.54 mg/dL 0.50 - 1.40 08/11/2018 [facility] CHEM PANEL Sodium Lvl 142 meq/L 135 - 145 08/11/2018 [facility] CHEM PANEL Calcium Lvl 8.6 mg/dL 8.5 - 10.5 08/11/2018 [facility] CHEM PANEL BUN 8 mg/dL 7 - 22 08/11/2018 [facility] CHEM PANEL Glucose Lvl 96 mg/dL 70 - 99 08/11/2018 [facility] CHEM PANEL AGAP 10.7 meq/L 10.0 - 20.0 08/11/2018 [facility] HEMATOLOGY RDW 12.7 % 11.5 - 14.5 08/11/2018 [facility] HEMATOLOGY Platelet 274 K/CMM 133 - 450 08/11/2018 [facility] MPV 7.8 fL 7.4 - 10.4 08/11/2018 [facility] MCH 32.7 pg 27.0 - 31.0 08/11/2018 [facility] MCHC 34.5 g/dL 32.0 - 36.0 08/11/2018 [facility] WBC 9.4 K/CMM 3.7 - 10.4 08/11/2018 [facility] RBC 3.25 M/CMM 4.70 - 6.10 08/11/2018 [facility] Hgb 10.6 g/dL 14.0 - 18.0 08/11/2018 [facility] Hct 30.8 % 42.0 - 54.0 08/11/2018 [facility] MCV 94.7 fL 80.0 - 94.0 08/11/2018 [facility] Basophils # 0.1 K/CMM 0.0 - 0.2 08/11/2018 [facility] Lymphocytes 21.3 % 20.0 - 40.0 08/11/2018 [facility] Segs 64.0 % 45.0 - 75.0 08/11/2018 [facility] Eosinophils # 0.3 K/CMM 0.0 - 0.5 08/11/2018 [facility] Monocytes # 1.0 K/CMM 0.0 - 0.8 08/11/2018 [facility] Basophils 0.7 % 0.0 - 1.0 08/11/2018 [facility] HEMATOLOGY Eosinophils 2.9 % 0.0 - 4.0 08/11/2018 [facility] HEMATOLOGY Monocytes 11.1 % 2.0 - 12.0 08/11/2018 [facility] Lymphocytes # 2.0 K/CMM 1.0 - 5.5 08/11/2018 [facility] HEMATOLOGY Neutrophils # 6.0 K/CMM 1.5 - 8.1 08/11/2018 [facility] SPECIAL CHEMISTRY PSA 10.80 ng/mL 0.00 - 4.00 08/10/2018 [facility] CHEM PANEL Lactic Acid Lvl 1.3 mMol/L 0.5 - 2.2 08/10/2018 [facility] CHEM PANEL eGFR 89 mL/min/1.73m2 08/10/2018 Result Comment: The eGFR is calculated using the CKD-EPI formula. In most young, healthy individuals the eGFR will be >90 mL/min/1.73m2. The eGFR declines with age. An eGFR of 60-89 may be normal in some populations, particularly the elderly, for whom the CKD-EPI formula has not been extensively validated. Use of the eGFR is not recommended in the following populations: Individuals with unstable creatinine concentrations, including patients and those with serious co-morbid conditions. Patients with extremes in muscle mass or diet. The data above are obtained from the National Kidney Disease Education Program (NKDEP) which additionally recommends that when the eGFR is used in patients with extremes of body mass index for purposes of drug dosing, the eGFR should be multiplied by the estimated BMI. [facility] CHEM PANEL Glucose Lvl 106 mg/dL 70 - 99 08/10/2018 [facility] CHEM PANEL Potassium Lvl 3.9 meq/L 3.5 - 5.1 08/10/2018 [facility] CHEM PANEL Chloride Lvl 108 meq/L 95 - 109 08/10/2018 [facility] CHEM PANEL CO2 26 meq/L 24 - 32 08/10/2018 [facility] CHEM PANEL Creatinine Lvl 0.71 mg/dL 0.50 - 1.40 08/10/2018 [facility] CHEM PANEL Sodium Lvl 142 meq/L 135 - 145 08/10/2018 [facility] CHEM PANEL BUN 12 mg/dL 7 - 22 08/10/2018 [facility] CHEM PANEL Calcium Lvl 8.8 mg/dL 8.5 - 10.5 08/10/2018 [facility] CHEM PANEL AGAP 11.9 meq/L 10.0 - 20.0 08/10/2018 [facility] CHEM PANEL Magnesium Lvl 2.3 mg/dL 1.8 - 2.4 08/10/2018 [facility] HEMATOLOGY Monocytes # 1.3 K/CMM 0.0 - 0.8 08/10/2018 [facility] HEMATOLOGY Basophils # 0.1 K/CMM 0.0 - 0.2 08/10/2018 [facility] HEMATOLOGY Eosinophils # 0.3 K/CMM 0.0 - 0.5 08/10/2018 [facility] HEMATOLOGY Eosinophils 2.4 % 0.0 - 4.0 08/10/2018 [facility] HEMATOLOGY Neutrophils # 6.7 K/CMM 1.5 - 8.1 08/10/2018 [facility] HEMATOLOGY Basophils 1.3 % 0.0 - 1.0 08/10/2018 [facility] Lymphocytes # 2.0 K/CMM 1.0 - 5.5 08/10/2018 [facility] HEMATOLOGY Segs 64.3 % 45.0 - 75.0 08/10/2018 [facility] Monocytes 12.6 % 2.0 - 12.0 08/10/2018 [facility] Lymphocytes 19.4 % 20.0 - 40.0 08/10/2018 [facility] INR 1.28 0.85 - 1.17 08/10/2018 [facility] PT 15.7 s 12.0 - 14.7 08/10/2018 [facility] MPV 8.0 fL 7.4 - 10.4 08/10/2018 [facility] Platelet 272 K/CMM 133 - 450 08/10/2018 [facility] Hgb 11.2 g/dL 14.0 - 18.0 08/10/2018 [facility] RBC 3.44 M/CMM 4.70 - 6.10 08/10/2018 [facility] MCH 32.4 pg 27.0 - 31.0 08/10/2018 [facility] MCV 95.7 fL 80.0 - 94.0 08/10/2018 [facility] RDW 12.5 % 11.5 - 14.5 08/10/2018 [facility] WBC 10.4 K/CMM 3.7 - 10.4 08/10/2018 [facility] Hct 32.9 % 42.0 - 54.0 08/10/2018 [facility] MCHC 33.9 g/dL 32.0 - 36.0 08/10/2018 [facility] HEMATOLOGY PTT 38.0 s 22.9 - 35.8 08/10/2018 [facility] URINE AND STOOL UA RBC 7 /HPF 0 - 2 08/10/2018 [facility] URINE AND STOOL UA WBC null 0 - 5 08/10/2018 [facility] URINE AND STOOL UA Mucus Few /LPF None Seen /LPF 08/10/2018 [facility] URINE AND STOOL UA Bacteria Many /HPF None Seen /HPF 08/10/2018 [facility] URINE AND STOOL UA Leuk Est Large *ABN* (08/10/18 11:10 AM) Negative 08/10/2018 [facility] URINE AND STOOL UA Sq Epi Occasional /LPF Few /LPF 08/10/2018 [facility] URINE AND STOOL UA Blood Small *ABN* (08/10/18 11:10 AM) Negative 08/10/2018 [facility] URINE AND STOOL UA Urobilinogen 4.0 mg/dL 0.1 - 1.0 08/10/2018 [facility] URINE AND STOOL UA Nitrite Positive *ABN* (08/10/18 11:10 AM) Negative 08/10/2018 [facility] URINE AND STOOL UA Glucose Negative mg/dL Negative mg/dL 08/10/2018 [facility] URINE AND STOOL UA Turbidity Marked *ABN* (08/10/18 11:10 AM) Clear 08/10/2018 [facility] URINE AND STOOL UA Protein Negative mg/dL Negative mg/dL 08/10/2018 [facility] URINE AND STOOL UA Color Yellow *NA* (08/10/18 11:10 AM) Yellow 08/10/2018 [facility] URINE AND STOOL UA pH 5.0 5.0 - 8.0 08/10/2018 [facility] URINE AND STOOL UA Spec Grav 1.015 <=1.030 08/10/2018 [facility] URINE AND STOOL UA Ketones Negative mg/dL Negative mg/dL 08/10/2018 [facility] URINE AND STOOL UA Bili Negative *NA* (08/10/18 11:10 AM) Negative 08/10/2018 [facility] Culture: Urine >100,000 CFU/mL Gram Negative Rods Identification And Sensitivity Pending Further Testing In Progress 08/10/2018 [facility] Chest 1view DX Chest 1view DX Clinical Indication: - fever; Comparison: None FINDINGS: The portable AP single view radiograph provided for review. The exam demonstrates normal lung volumes without interstitial or airspace opacities, pleural effusions or pneumothorax. A rectangular shaped radiopacity overlies the left mid mediastinum, likely an implantable loop recorder. The heart size and pulmonary vasculature are normal. The trachea is midline. There are no clinically significant osseous abnormalities noted. IMPRESSION: No chest radiographic evidence of acute cardiopulmonary disease. LAURIE: KUSUM 08/10/2018 - - Read by: Jose C Berger MD Dictated Date/time: 08/10/18 12:42 Electronically Signed by: Jose C Berger MD 08/10/18 12:45 FINAL REPORT [facility] Blood hemoglobin measurement (moles/volume) 10.9 14.0 - 18.0 07/31/2018 [facility] Automated blood hematocrit (volume fraction) 32.3 38.2 - 49.6 07/31/2018 [facility] Vital Signs Vital Sign Value Date Comments Source Heart Rate 80 08/11/2018 [facility] Systolic (mm Hg) 153 08/11/2018 [facility] Diastolic (mm Hg) 72 08/11/2018 [facility] Temperature Oral (F) 97.9 F 08/11/2018 [facility] Heart Rate 80 08/11/2018 [facility] Respitory Rate 18 08/11/2018 [facility] Temperature Oral (F) 98.6 F 08/11/2018 [facility] Systolic (mm Hg) 131 08/11/2018 [facility] Diastolic (mm Hg) 74 08/11/2018 [facility] Respitory Rate 16 08/11/2018 [facility] Heart Rate 60 08/11/2018 [facility] Systolic (mm Hg) 130 08/11/2018 [facility] Diastolic (mm Hg) 70 08/11/2018 [facility] Temperature Oral (F) 98.5 F 08/11/2018 [facility] Respitory Rate 18 08/11/2018 [facility] Weight 97.727 08/10/2018 [facility] Height 185.42 cm 08/10/2018 [facility] BMI Calculated 28.43 08/10/2018 [facility] Weight 97.727 08/10/2018 [facility] BMI Calculated 28.43 08/10/2018 [facility] Height 185.42 cm 08/10/2018 [facility] Encounters Location Location Details Encounter Type Encounter Number Reason For Visit Attending Provider ADM Date DC Date Status Source [facility] - [facility] [id number] Fredrick Daniel 12/04/2013 12/05/2013 [facility] [id number] AUDREY KOHLER DO 07/16/2018 [facility] Discharged Inpatient [id number] LÁZARO ANTON MD 07/30/2018 07/31/2018 [facility] [id number] López Teqwimuah 08/10/2018 08/11/2018 [facility] Procedures Procedure Code Date Perfomer Comments Source Total replacement of right hip joint [id number] 07/30/2018 [facility] Arthroplasty of right hip joint [id number] JARRETT Mccray
--- OUTSIDE RECORDS SUMMARY | 2018-09-24 07:37 | XMS REPORT | Summary of Care ---
Author Author [facility] Organization [facility] Address Unknown Phone Unavailable Encounter HQ Sammi(FIN) [id number] Date(s): 08/10/18 - 08/11/18 [facility] [address] [place] [address]- Discharge Disposition: Home or Self Care Attending Physician: López Ruiz DO Admitting Physician: López Ruiz DO Vital Signs 1 2 3 Most recent to oldest [Reference Range]: 185.42 cm (08/10/18 6:25 PM) 185.42 cm (08/10/18 9:50 AM) Height 97.9 DegF (08/11/18 11:55 AM) 98.6 DegF (08/11/18 7:52 AM) 98.5 DegF (08/11/18 4:07 AM) Temperature Oral [96.4-99.1 DegF] 153/72 mmHg *HI* (08/11/18 11:55 AM) 131/74 mmHg (08/11/18 7:52 AM) 130/70 mmHg (08/11/18 4:07 AM) Blood Pressure [90-140/60-90 mmHg] 18 BRMIN (08/11/18 7:52 AM) 16 BRMIN (08/11/18 4:07 AM) 18 BRMIN (08/10/18 11:16 PM) Respiratory Rate [14-20 BRMIN] 80 bpm (08/11/18 11:55 AM) 80 bpm (08/11/18 7:52 AM) 60 bpm (08/11/18 4:07 AM) Peripheral Pulse Rate [60-100 bpm] 97.727 kg (08/10/18 6:25 PM) 97.727 kg (08/10/18 9:50 AM) Weight 28.43 m2 (08/10/18 6:25 PM) 28.43 m2 (08/10/18 9:50 AM) Body Mass Index Problem List No data available for this section Allergies, Adverse Reactions, Alerts No Known Allergies Medications acetaminophen-hydrocodone 325 mg-7.5 mg oral tablet 1 tab, PO, Q4H, PRN Pain Score 6-10, 0 Refill(s) Start Date: 08/10/18 Status: Ordered cefTRIAXone + sterile water 10 mL 1 gm, Route: IVPB, [id number], Dosing Weight 97.727, kg, Start date: 08/10/18 23:00 :00 CDT, Duration: 30 day, Stop date: 09/09/18 11:00:00 CDT, ABX Indication: Gen ital Tract Infection Notes: (Same As: Rocephin).Use with 100 mL NS and infuse over 30 min MEDICA TION WASTE Product Size: 1000 mgProduct Wasted: ___ mg Start Date: 08/10/18 Stop Date: 08/11/18 Status: Discontinued cilostazol 100 mg oral tablet 100, PO, BID, # 180 tab, 0 Refill(s) Start Date: 08/10/18 Status: Ordered ciprofloxacin 500 mg, PO, BID, Began taking on 08/07/18, 0 Refill(s) Start Date: 08/10/18 Stop Date: 08/11/18 Status: Discontinued ciprofloxacin 500 mg oral tablet 500 mg, PO, BID, Began taking on 08/07/18, # 10 tab, 0 Refill(s), Pharmacy: [facility] [id number] Start Date: 08/11/18 Stop Date: 08/16/18 Status: Ordered cloNIDine 0.1 mg oral tablet 0.1 mg, 1 tab, Route: PO, Drug form: TAB, Q8H, Dosing Weight 97.727, kg, PRN, St art date: 08/10/18 15:32:00 CDT, Duration: 30 day, Stop date: 09/09/18 15:31:00 CDT, SBP >160 Notes: (Same As: Catapres) Start Date: 08/10/18 Stop Date: 08/11/18 Status: Discontinued dutasteride 0.5 mg oral capsule 0.5 mg=1 cap, PO, Daily, # 30 cap, 0 Refill(s) Start Date: 08/10/18 Status: Ordered lisinopril 5 mg, 1 tab, Route: PO, Drug form: TAB, Daily, Dosing Weight 97.727, kg, Start d ate: 08/12/18 9:00:00 CDT, Duration: 30 day, Stop date: 09/10/18 9:00:00 CDT Notes: (Same as: Prinivil, Zestril) Start Date: 08/12/18 Stop Date: 08/11/18 Status: Canceled lisinopril 5 mg oral tablet 5 mg=1 tab, PO, Daily, # 90 tab, 1 Refill(s) Start Date: 08/10/18 Status: Ordered Lovenox 40 mg, 0.4 mL, Route: SUB-Q, Drug form: INJ, [id number], Dosing Weight 97.727, kg, Start date: 08/10/18 16:00:00 CDT, Duration: 30 day, Stop date: 09/08/18 16:00: 00 CDT Notes: (Same as: Lovenox) Start Date: 08/10/18 Stop Date: 08/11/18 Status: Discontinued meclizine 12.5 mg, PO, Daily, PRN Dizziness, # 20 tab, 0 Refill(s) Start Date: 08/10/18 Status: Ordered memantine 10 mg, 2 tab, Route: PO, Drug form: TAB, BID, Dosing Weight 97.727, kg, Start da te: 08/11/18 17:00:00 CDT, Duration: 30 day, Stop date: 09/10/18 9:00:00 CDT Notes: (Same As: Namenda) Start Date: 08/11/18 Stop Date: 08/11/18 Status: Canceled memantine 10 mg, PO, BID, 0 Refill(s) Start Date: 08/10/18 Status: Ordered metoprolol tartrate 50 mg oral tablet 50 mg=1 tab, PO, BID, # 60 tab, 0 Refill(s) Start Date: 08/10/18 Status: Ordered [place] 5/325 oral tablet 1 tab, Route: PO, Drug Form: TAB, Dosing Weight 97.727, kg, Q4H, PRN Pain Score 1-3, Start date: 08/10/18 15:32:00 CDT, Duration: 30 day, Stop date: 09/09/18 15 :31:00 CDT Notes: (Same as: [place] 325/5) Do not exceed 4gm/day of acetaminophen. Start Date: 08/10/18 Stop Date: 08/11/18 Status: Discontinued NS 1,000 mL 1,000 mL, Rate: 100 ml/hr, Infuse over: 10 hr, Route: IV, Dosing Weight 97.727 k g, Total Volume: 1,000, Start date: 08/10/18 15:32:00 CDT, Duration: 30 day, Sto p date: 09/09/18 15:31:00 CDT, 2.26, m2 Start Date: 08/10/18 Stop Date: 08/11/18 Status: Discontinued ondansetron 4 mg, 2 mL, Route: IVP, Drug form: INJ, ONCE, Dosing Weight 97.727, kg, Priority : STAT, Start date: 08/10/18 10:25:00 CDT, Stop date: 08/10/18 10:25:00 CDT Notes: (Same as: Zofran) MEDICATION WASTE Product Size: 4 mgProduct Was gloria: ___ mg Start Date: 08/10/18 Stop Date: 08/10/18 Status: Completed Rocephin + sterile water 10 mL 1 gm, Route: IV, ONCE, Dosing Weight 97.727, kg, Priority: STAT, Start date: 07/26 10:26:00 CDT, Stop date: 08/10/18 10:26:00 CDT, ABX Indication: Intra-abdo jocelyn Infection Notes: (Same As: Rocephin).Use with 100 mL NS and infuse over 30 min MEDICA TION WASTE Product Size: 1000 mgProduct Wasted: ___ mg Start Date: 08/10/18 Stop Date: 08/10/18 Status: Completed Saline Flush 0.9% 10 mL, Route: IVP, Drug Form: INJ, Dosing Weight 97.727, kg, PRN, PRN Line Flush , Start date: 08/10/18 10:25:00 CDT, Duration: 30 day, Stop date: 09/09/18 10:24 :00 CDT Notes: (Same as: BD Posiflush) Start Date: 08/10/18 Stop Date: 08/11/18 Status: Discontinued Sodium Chloride 0.9% (Bolus) IV 1,000 mL, 1000 ml/hr, Infuse Over: 1 hr, Route: IV, 1,000, Drug form: INJ, ONCE, Priority: STAT, Dosing Weight 97.727 kg, Start date: 08/10/18 10:25:00 CDT, Stop date: 08/10/18 10:25:00 CDT Start Date: 08/10/18 Stop Date: 08/10/18 Status: Completed tamsulosin 0.4 mg, PO, Daily, 0 Refill(s) Start Date: 08/10/18 Status: Ordered tamsulosin 0.4 mg, 1 cap, Route: PO, Drug form: CAP, Daily, Dosing Weight 97.727, kg, Start date: 08/12/18 9:00:00 CDT, Duration: 30 day, Stop date: 09/10/18 9:00:00 CDT Notes: (Same As: Flomax) "Do Not Crush" Start Date: 08/12/18 Stop Date: 08/11/18 Status: Canceled Toprol-XL 50 mg oral tablet, extended release 50 mg, 1 tab, Route: PO, Drug form: ERTAB, Daily, Start date: 08/12/18 9:00:00 C DT, Duration: 30 day, Stop date: 09/10/18 9:00:00 CDT Notes: (Same as: Toprol XL) May split tab, but do not crush. Start Date: 08/12/18 Stop Date: 08/11/18 Status: Canceled Zofran 4 mg, 2 mL, Route: IVP, Drug form: INJ, Q8H, Dosing Weight 97.727, kg, PRN as ne eded for nausea/vomiting, Priority: STAT, Start date: 08/10/18 15:32:00 CDT, Dur ation: 30 day, Stop date: 09/09/18 15:31:00 CDT Notes: (Same as: Zofran) MEDICATION WASTE Product Size: 4 mgProduct Was gloria: ___ mg Start Date: 08/10/18 Stop Date: 08/11/18 Status: Discontinued Results Most recent to 1 2 oldest [Reference Range]: Neutrophils # 6.0 K/CMM 6.7 K/CMM [1.5-8.1 K/CMM] (08/11/18 5:53 AM) (08/10/18 11:10 AM) Lymphocytes # 2.0 K/CMM 2.0 K/CMM [1.0-5.5 K/CMM] (08/11/18 5:53 AM) (08/10/18 11:10 AM) Monocytes # [0.0-0.8 1.0 K/CMM 1.3 K/CMM K/CMM] *HI* *HI* (08/11/18 5:53 AM) (08/10/18 11:10 AM) Eosinophils # 0.3 K/CMM 0.3 K/CMM [0.0-0.5 K/CMM] (08/11/18 5:53 AM) (08/10/18 11:10 AM) Basophils # [0.0-0.2 0.1 K/CMM 0.1 K/CMM K/CMM] (08/11/18 5:53 AM) (08/10/18 11:10 AM) eGFR 100 mL/min/1.73m2 1 89 mL/min/1.73m2 2 *NA* *NA* (08/11/18 5:53 AM) (08/10/18 11:10 AM) AGAP [10.0-20.0 10.7 mEq/L 11.9 mEq/L mEq/L] (08/11/18 5:53 AM) (08/10/18 11:10 AM) Basophils [0.0-1.0 0.7 % 1.3 % %] (08/11/18 5:53 AM) *HI* (08/10/18 11:10 AM) BUN [7-22 mg/dL] 8 mg/dL 12 mg/dL (08/11/18 5:53 AM) (08/10/18 11:10 AM) Calcium Lvl 8.6 mg/dL 8.8 mg/dL [8.5-10.5 mg/dL] (08/11/18 5:53 AM) (08/10/18 11:10 AM) Chloride Lvl [95-109 110 mEq/L 108 mEq/L mEq/L] *HI* (08/10/18 11:10 AM) (08/11/18 5:53 AM) CO2 [24-32 mEq/L] 25 mEq/L 26 mEq/L (08/11/18 5:53 AM) (08/10/18 11:10 AM) Creatinine Lvl 0.54 mg/dL 0.71 mg/dL [0.50-1.40 mg/dL] (08/11/18 5:53 AM) (08/10/18 11:10 AM) Eosinophils [0.0-4.0 2.9 % 2.4 % %] (08/11/18 5:53 AM) (08/10/18 11:10 AM) Glucose Lvl [70-99 96 mg/dL 106 mg/dL mg/dL] (08/11/18 5:53 AM) *HI* (08/10/18 11:10 AM) Hct [42.0-54.0 %] 30.8 % 32.9 % *LOW* *LOW* (08/11/18 5:53 AM) (08/10/18 11:10 AM) Hgb [14.0-18.0 g/dL] 10.6 g/dL 11.2 g/dL *LOW* *LOW* (08/11/18 5:53 AM) (08/10/18 11:10 AM) INR [0.85-1.17] 1.28 *HI* (08/10/18 11:10 AM) Potassium Lvl 3.7 mEq/L 3.9 mEq/L [3.5-5.1 mEq/L] (08/11/18 5:53 AM) (08/10/18 11:10 AM) Lactic Acid Lvl 1.3 mMol/L [0.5-2.2 mMol/L] (08/10/18 11:10 AM) Lymphocytes 21.3 % 19.4 % [20.0-40.0 %] (08/11/18 5:53 AM) *LOW* (08/10/18 11:10 AM) MCH [27.0-31.0 pg] 32.7 pg 32.4 pg *HI* *HI* (08/11/18 5:53 AM) (08/10/18 11:10 AM) MCHC [32.0-36.0 34.5 g/dL 33.9 g/dL g/dL] (08/11/18 5:53 AM) (08/10/18 11:10 AM) MCV [80.0-94.0 fL] 94.7 fL 95.7 fL *HI* *HI* (08/11/18 5:53 AM) (08/10/18 11:10 AM) Magnesium Lvl 2.3 mg/dL [1.8-2.4 mg/dL] (08/10/18 11:10 AM) Monocytes [2.0-12.0 11.1 % 12.6 % %] (08/11/18 5:53 AM) *HI* (08/10/18 11:10 AM) MPV [7.4-10.4 fL] 7.8 fL 8.0 fL (08/11/18 5:53 AM) (08/10/18 11:10 AM) Sodium Lvl [135-145 142 mEq/L 142 mEq/L mEq/L] (08/11/18 5:53 AM) (08/10/18 11:10 AM) Platelet [133-450 274 K/CMM 272 K/CMM K/CMM] (08/11/18 5:53 AM) (08/10/18 11:10 AM) Segs [45.0-75.0 %] 64.0 % 64.3 % (08/11/18 5:53 AM) (08/10/18 11:10 AM) PSA [0.00-4.00 10.80 ng/mL ng/mL] *HI* (08/10/18 3:55 PM) PT [12.0-14.7 15.7 seconds seconds] *HI* (08/10/18 11:10 AM) PTT [22.9-35.8 38.0 seconds seconds] *HI* (08/10/18 11:10 AM) RBC [4.70-6.10 3.25 M/CMM 3.44 M/CMM M/CMM] *LOW* *LOW* (08/11/18 5:53 AM) (08/10/18 11:10 AM) RDW [11.5-14.5 %] 12.7 % 12.5 % (08/11/18 5:53 AM) (08/10/18 11:10 AM) UA Bacteria [None Many /HPF Seen /HPF] *ABN* (08/10/18 11:10 AM) UA Bili [Negative] Negative *NA* (08/10/18 11:10 AM) UA Blood [Negative] Small *ABN* (08/10/18 11:10 AM) UA Color [Yellow] Yellow *NA* (08/10/18 11:10 AM) UA Glucose [Negative Negative mg/dL mg/dL] *NA* (08/10/18 11:10 AM) UA Ketones [Negative Negative mg/dL mg/dL] *NA* (08/10/18 11:10 AM) UA Leuk Est Large [Negative] *ABN* (08/10/18 11:10 AM) UA Mucus [None Seen Few /LPF /LPF] *NA* (08/10/18 11:10 AM) UA Nitrite Positive [Negative] *ABN* (08/10/18 11:10 AM) UA pH [5.0-8.0] 5.0 (08/10/18 11:10 AM) UA Protein [Negative Negative mg/dL mg/dL] (08/10/18 11:10 AM) UA RBC [0-2 /HPF] 7 /HPF *HI* (08/10/18 11:10 AM) UA Spec Grav 1.015 [<=1.030] (08/10/18 11:10 AM) UA Sq Epi [Few /LPF] Occasional /LPF *NA* (08/10/18 11:10 AM) UA Turbidity [Clear] Marked *ABN* (08/10/18 11:10 AM) UA Urobilinogen 4.0 mg/dL [0.1-1.0 mg/dL] *HI* (08/10/18 11:10 AM) UA WBC [0-5 /HPF] >182 /HPF *HI* (08/10/18 11:10 AM) WBC [3.7-10.4 K/CMM] 9.4 K/CMM 10.4 K/CMM (08/11/18 5:53 AM) (08/10/18 11:10 AM) 1Result Comment: The eGFR is calculated using the [...] from the National Kidney Disease Education Program ( NKDEP) which additionally recommends that when the eGFR is used in patients with extremes of body mass index for purposes of drug dosing, the eGFR should be mul tiplied by the estimated BMI. 2Result Comment: The eGFR is calculated using the [...] from the National Kidney Disease Education Program ( NKDEP) which additionally recommends that when the eGFR is used in patients with extremes of body mass index for purposes of drug dosing, the eGFR should be mul tiplied by the estimated BMI. Microbiology Reports TEST: Culture: Urine STATUS: Order in Progress BODY SITE: SOURCE: Urine, Clean Catch COLLECTED DATE/TIME: 08/10/18 11:10 AM PRELIMINARY REPORT >100,000 CFU/mL Gram Negative Rods Identification And Sensitivity Pending Further Testing In Progress Immunizations No data available for this section Procedures Procedure Date Related Diagnosis Body Site Status Arthroplasty of right hip joint Completed Social History Social History Type Response Smoking Status Never smoker; Previous treatment: None; Ready to change: No; Concerns about tobacco use in household: No; Exposure to Tobacco Smoke None; Cigarette Smoking Last 365 Days No; Reg Smoking Cessation Counseling No entered on: 08/10/18 Assessment and Plan No data available for this section
--- OUTSIDE RECORDS SUMMARY | 2018-09-24 07:37 | XMS REPORT | Summary of Care ---
Author Organization Unknown Address Unknown Phone Unavailable Encounter HQ Encntr_alias(FIN) [id number] Date(s): 12/04/13 - 12/04/13 [facility] Outpatient Imaging - [address] [address]- [place] Discharge Disposition: Home Physician Attending: Fredrick Daniel MD Reason for Visit 780.4 - DIZZINESS AND G Problem List No data available for this section Allergies, Adverse Reactions, Alerts No data available for this section Medications No data available for this section Medications Administered During Your Visit No data available for this section Immunizations No data available for this section
[2018-09-24] MEDS ORDERED: CEFAZOLIN SOD 1 GM/NS 50ML 50 ML IV ONE ×2 (08:07)
[2018-09-24] MEDS ORDERED: CELECOXIB 200 MG CAP ONE (08:08)
[2018-09-24] MEDS ORDERED: DEXAMETHASONE SOD PHOS 10 MG/1 ML VIAL ONE (08:08)
[2018-09-24] MEDS ORDERED: GABAPENTIN 300 MG CAP ONE (08:09)
[2018-09-24] MEDS ORDERED: metoprolol (08:35)
[2018-09-24] MEDS ORDERED: MUPIROCIN 2% OINT 22 GM TUBE ONE (10:29)
[2018-09-24] MEDS: SODIUM CHLORIDE 0.9% 1000ML 1,000 ML IV SCH ×2 (10:36→20:29)
[2018-09-24] MEDS ORDERED: HYDROCODONE/APAP 5MG-325MG TAB PO PRN (10:45)
[2018-09-24] MEDS ORDERED: DOCUSATE SODIUM 100 MG CAP PO PRN (10:45)
[2018-09-24] MEDS ORDERED: DIPHENHYDRAMINE HCL INJ 50 MG/ML VIAL IM/IV PRN (10:45)
[2018-09-24] MEDS ORDERED: KETOROLAC TROMETHAMINE 30 MG/ML VIAL IV PRN (10:45)
[2018-09-24] MEDS ORDERED: ACETAMINOPHEN 650 MG SUPP PR PRN (10:45)
[2018-09-24] MEDS ORDERED: PROMETHAZINE HCL (IM) 25 MG/ML VIAL INJ PRN (10:45)
[2018-09-24] MEDS ORDERED: HYDROCODONE/APAP 7.5MG-325MG 1 EA TAB PO PRN (10:45)
[2018-09-24] MEDS ORDERED: ZOLPIDEM TARTRATE 5 MG TAB PO PRN (10:45)
--- OUTSIDE RECORDS SUMMARY | 2018-09-24 10:57 | XMS REPORT | Clinical Summary ---
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 Hospital Procedural Cardiology Encounter Richard Magallon [...] Taken Vital Sign Reading 05/14/2018 10:38 AM PHYSIOLOGY TEACHER Blood Pressure 136/63 05/14/2018 10:38 AM PHYSIOLOGY TEACHER Pulse 64 05/14/2018 10:10 AM PHYSIOLOGY TEACHER Temperature 36.7 C (98 F) 05/14/2018 10:38 AM PHYSIOLOGY TEACHER Respiratory Rate 18 05/14/2018 10:38 AM PHYSIOLOGY TEACHER Oxygen Saturation 96% - Inhaled Oxygen - [...] Area Manufactur er 06/06/2018 [id number] / / [id number] System Reveal Linq W/Monitors - Cardiac N/A: N/A [employer] [id number] Pacemakers CARDIAC Implanted: 07/23/2017 (Quantity not and RHYTHM on file) Related DISEASE Products MGMT 07/07/2017 [id number] / / [id number] Device Vasclr Clsr Vasoactive Cardiovasc N/A: N/A Intstnl Peptd 6fr Angio-Seal - ular [id number] Implants Implanted: 09/19/2016 (Quantity not on file) 03/08/2018 [id number] / / [id number] Device Vasclr Clsr Vasoactive Cardiovasc N/A: N/A Intstnl Peptd 6fr Angio-Seal - ular [id number] Implants Implanted: 07/24/2017 (Quantity not on file) [id number] / / Catheter Angio Representative Personal Service Ii 5fr 100cm Surgical N/A: N/A [facility] Selc Braidd Torque [place] - [id number] Implants; PERIPHERAL Implanted: 09/19/2016 (Quantity not Expanders; INTERVENTI on file) Extenders; ON Surgical VASCULAR Wires SREEDHAR [id number] / / [facility] N/A: N/A C Torque Representative Personal Service Ii 5fr 100cm - Implants; PERIPHERAL [id number] Expanders; INTERVENTI Implanted: 07/24/2017 (Quantity not Extenders; ON on file) Surgical VASCULAR Wires SREEDHAR Procedures Comments Procedure Name Priority Date/Time Associated Diagnosis CV PACEMAKER DEFIB ILR Routine 07/22/2018 Cryptogenic stroke (HCC) INTERROGATION 8:26 AM CDT CV LOOP RECORDER MONITOR Routine 05/27/2018 Cryptogenic stroke (HCC) EVAL <30DAYS 4:38 PM PHYSIOLOGY TEACHER CV LOOP RECORDER MONITOR Routine 04/29/2018 Cryptogenic stroke (HCC) EVAL <30DAYS 3:59 PM PHYSIOLOGY TEACHER CV LOOP RECORDER MONITOR Routine 03/29/2018 Cryptogenic stroke (HCC) EVAL <30DAYS 1:06 PM PHYSIOLOGY TEACHER CV LOOP RECORDER MONITOR Routine 02/01/2018 Cryptogenic [...] Specimen Narrative Performed At Performing Organization Address [facility] Phone Number [facility] [address] [place] [address] * CV pacemaker defib or ilr interrogation (05/27/2018 4:38 PM PHYSIOLOGY TEACHER) Specimen Narrative Performed At Performing Organization Address [facility] [address] [place] [address] * CV pacemaker defib or ilr interrogation (04/29/2018 3:59 PM PHYSIOLOGY TEACHER) Specimen Narrative Performed At Performing Organization Address [facility] Phone Number [facility] [address] [place] [address] * Cv pacemaker defib or ilr interrogation (01/03/2018 3:28 PM CDT) Specimen Narrative Performed At Performing Organization Address [facility] Phone Number [facility] [address] [place] [address] * Cv pacemaker defib or ilr interrogation (09/27/2017 8:55 AM CDT) Specimen Narrative Performed At Performing Organization Address [facility] Phone Number [facility] [address] [place] [address] after 09/23/2017 Insurance Type Payer Benefit Subscriber ID Effective Phone Address Plan / Dates Group O [employer]IG[employer] CIGNA xxxxxxxxxxx 2015-P HEALTHSPRI resent [facility] MCR ADV Advance Directives Patient has advance care planning documents on file. For more information, neyda genao contact: Kirill Ferrari [address] [address]
[2018-09-24] MEDS ORDERED: SEVOFLURANE INHAL SOLN 250 ML PEN BTL ONE (11:26)
[2018-09-24] MEDS ORDERED: ONDANSETRON HCL INJ 2MG/ML 2ML 2 MG/ML VIAL ONE (11:26)
[2018-09-24] MEDS ORDERED: LIDOCAINE HCL 2% LOCAL INJ 5 ML SDV VIAL INJ ONE (11:26)
[2018-09-24] MEDS ORDERED: PROPOFOL IV EMULSION 10 MG/ML 20 ML VIAL ONE (11:26)
[2018-09-24] MEDS ORDERED: ACETAMINOPHEN 1000 MG/100 ML IV ONE (11:26)
--- NOTE | 2018-09-24 11:32 | Diagnostic Imaging Report ---
Exam: Right knee 2 views History: Postoperative study Comparison: None. Findings: See impression Impression: Status post right total knee arthroplasty with intact surgical hardware, expected skin danna and subcutaneous gas. No periprosthetic displaced fracture. Signed by: Dr. Sergio Pittman M.D. on 09/24/2018 11:28 AM
--- NOTE | 2018-09-24 11:45 | NUR ---
Received patient from PACU patient awake and alert to self, patient is s/p right knee replacement SHERIE wrap bandage in place, patient reported to me patient has on top of right foot a venous stasis ulcer, and this is a chronic problem in the past patient has had vascular surgery. reported this morning when he was showering at home prior to procedure he scraped the venous stasis ulcer and it bled, scant drainage to Kerlix dressing. No drainage to SHERIE wrap. Oriented to room and use of call light, reported nausea will medicate with Zofran per orders.
--- NOTE | 2018-09-24 12:09 | NUR ---
Notified Dr. Harriett Reyes, IR consult for retroperitoneal lymphnoid biopsy to be done 09/25/18 received orders for NPO after MN, PT/INR, PTT, in am. Addendum: 09/24/18 at 1213 by Ijeoma Jiménez RN DISCARD NOTE ENTERED IN ERROR.
--- NOTE | 2018-09-24 12:10 | NUR ---
Patient has right ankle venous stasis ulcer reported he has chronic vascular disease.
[2018-09-24] MEDS: ONDANSETRON HCL INJ 2MG/ML 2ML 2 MG/ML VIAL IV PRN ×2 (12:42→18:08)
[2018-09-24 12:50] VITALS: BP 129/65
[2018-09-24] MEDS: ACETAMINOPHEN 1000 MG/100 ML IV SCH ×2 (13:00→18:08)
--- NOTE | 2018-09-24 13:31 | Operative Report ---
DATE OF PROCEDURE: 09/24/2018 SURGEON: Sergio Crocker MD SURVEY RESEARCH ANALYST: Vishnu Arboleda PA-C PREOPERATIVE DIAGNOSIS: Osteoarthritis of right knee. POSTOPERATIVE DIAGNOSIS: Osteoarthritis of right knee. PROCEDURE: Right total knee arthroplasty. INDICATIONS: The patient is a frail 78-year-old gentleman, who has advanced osteoarthritis of his right knee. He has failed conservative management and feels the symptoms are significantly limiting his mobility. The risks and benefits of a right total knee replacement have been discussed. He states he understands and wishes to proceed. PROCEDURE IN DETAIL: The patient was brought to the operating room and placed under general anesthetic. He received a regional block, prophylactic antibiotics and tranexamic acid in the holding area. His right lower extremity was prepped and draped in a sterile manner. A preoperative time-out was performed. The extremity was exsanguinated and a proximal tourniquet was inflated to 300 mmHg. An anterior incision with a medial parapatellar arthrotomy was performed. Soft tissue releases were performed to bring the knee up into flexion with the patella everted. Meniscal remnants and marginal osteophytes were removed. The anterior cruciate ligament was removed. The knee was levered forward. An extramedullary cutting guide was used to resect the proximal tibia. A [employer] and Freedom[employer] knee system was used throughout the case. The tibial baseplate was a size #7. The central fin punch was impacted and attention was directed towards the distal femur. An intramedullary cutting guide was used to resect the distal femur in 5 degrees of valgus and rotation referencing off a combination of landmarks including Whitesides line, the epicondylar axis, and the posterior condyles. Some posterior lateral hypoplasia of the femoral condyles was taken into account. The femoral component was also a size 7. The anterior and posterior cuts were made. A 9 mm ultracongruent tibial insert provided appropriate soft tissue balancing in full extension and 90 degrees of flexion. The patella was resurfaced with a 35 mm x 7.5 mm patellar button. The thickness was checked before and after resurfacing and it was right around 24 mm. Patellar tracking was noted to be concentric. The trial implants were removed. A 100 mL premixed pericapsular CLARISA injection was placed into the surrounding soft tissue. The knee was thoroughly irrigated with a shower tip pulsatile lavage. All bone cuts have been irrigated with a spray mixture of polymyxin and vancomycin solution. The components were cemented into place using a single mix of Palacos cement preloaded with antibiotics. Care was taken to remove extravasated cement. The wound was further irrigated while the cement cured. 500 mg of vancomycin powder were then sprinkled into the joint. The arthrotomy was closed with interrupted #1 Ethibond. The skin was closed with subcuticular Vicryl and danna. A sterile Aquacel bandage was applied. The patient was extubated and transported to the recovery room in stable condition. Blood loss was minimal. All needle and sponge counts were correct. Sergio Crocker MD DR/MAYTE /[id number]
[2018-09-24 13:34] VITALS: BP 134/69
[2018-09-24] MEDS: CEFAZOLIN SOD 1 GM/NS 50ML 50 ML IV SCH ×2 (14:33→21:05)
[2018-09-24 17:02] VITALS: BP 125/65
[2018-09-24] MEDS: CELECOXIB 100 MG CAP PO SCH (17:55)
[2018-09-24] MEDS: ASPIRIN 325 MG TAB PO SCH (17:55)
[2018-09-24] MEDS ORDERED: ROPIVACAINE 0.5% 5 MG/ML 30 ML SDV ONE (18:54)
[2018-09-24] MEDS ORDERED: LIDOCAINE 2% /EPINEPHRINE 20 ML SDV INJ ONE (18:54)
--- NOTE | 2018-09-24 19:30 | NUR ---
Rounding done & patient received. Patient asleep in bed, respirations even & unlabored, no distress noted. IV fluids running to L hand, patent & no infiltration noted. is at bedside. Call light within reach, side rails x2 raised & bed set to lowest position.
[2018-09-24] MEDS ORDERED: KETAMINE HCL INJ 50 MG/ML 10 ML VIAL ONE (19:31)
[2018-09-24] MEDS ORDERED: FENTANYL CITRATE/PF 100MCG/2 ML INJ ONE (19:31)
[2018-09-24 19:43] VITALS: BP 145/71
--- NOTE | 2018-09-24 21:05 | NUR ---
CPM placed to R leg, setting @ 50, patient denies any pain or discomfort
[2018-09-24 23:27] VITALS: BP 145/71
[2018-09-25] VITALS: BP 144/63
[2018-09-25] MEDS: ACETAMINOPHEN 1000 MG/100 ML IV SCH ×2 (00:25→06:01)
[2018-09-25] MEDS: SODIUM CHLORIDE 0.9% 1000ML 1,000 ML IV SCH (01:51)
[2018-09-25 04:00] VITALS: BP 159/72
--- NOTE | 2018-09-25 06:00 | NUR ---
CPM placed to R leg, setting @ 70, patient c/o pain to knee, setting lowered to 60, still c/o pain, will medicate per emar
[2018-09-25] MEDS: CEFAZOLIN SOD 1 GM/NS 50ML 50 ML IV SCH (06:15)
[2018-09-25 06:35] LABS: HEMATOCRIT 32.8 % (38.2-49.6); HEMOGLOBIN 11.2 g/dL (14.0-18.0)
--- NOTE | 2018-09-25 07:00 | NUR ---
PT RESTING IN BED AA0X3. PT IS HARD OF HEARING AND BENGALI SPEAKING ONLY PT IS ON CPM MACHINE TO THE RIGHT LEG TOLERATING WELL DRESSING IS COVERED WITH SHERIE WITH REMOVE SHERIE WHEN CPM FINISHED DRESSING IS DRY AND INTACT PT IS ON IV FLUIDS TO THE LEFT HAND WITH NS AT 100CC.HR SITE IS CLEAN AND DRY WILL CONTINUE TO MONITOR PT CLOSELY, SIDE RAILSX2, BED WHEELS LOCKED, CALL LIGHT IS WITHIN EASY REACH, INSTRUCTED TO CALL FOR ASSISTANCE IF NEEDED IS AT BEDSIDE
[2018-09-25 07:30] VITALS: BP 138/71
[2018-09-25] MEDS ORDERED: KETOROLAC TROMETHAMINE 30 MG/ML VIAL IV PRN (07:45)
[2018-09-25] MEDS ORDERED: LISINOPRIL 2.5 MG TAB PO SCH (09:00)
[2018-09-25] MEDS ORDERED: MEMANTINE 10 MG TAB PO SCH (09:00)
[2018-09-25] MEDS ORDERED: TAMSULOSIN HCL 0.4 MG CAP PO SCH (09:00)
[2018-09-25 09:30] VITALS: BP 138/71
[2018-09-25] MEDS: CELECOXIB 100 MG CAP PO SCH (09:30)
[2018-09-25] MEDS: ASPIRIN 325 MG TAB PO SCH (09:30)
[2018-09-25] MEDS ORDERED: ACETAMINOPHEN 1000 MG/100 ML IV PRN (10:45)
--- NOTE | 2018-09-25 12:11 | Consultation ---
DATE OF CONSULTATION: REASON FOR CONSULTATION: Postop medical management. HISTORY OF PRESENT ILLNESS: The patient is a 78-year-old gentleman, who is status post right total knee arthroplasty. He is doing well postoperatively, in minimal pain and denies any chest pain, fever, chills, headache, shortness of breath. No nausea, vomiting, or dizziness. PAST MEDICAL HISTORY: Significant for BPH, Alzheimer's, high blood pressure, and hyperlipidemia. MEDICATIONS: See MAR. ALLERGIES: NOTED. SOCIAL HISTORY: He is a former smoker. He is , lives at home with his . Nondrinker. FAMILY HISTORY: Noncontributory. PHYSICAL EXAMINATION: VITAL SIGNS: Temperature 96.1, blood pressure 144/63, pulse 56, and sats 98% on room air. GENERAL: In no apparent distress, lying in bed. NECK: Supple. No lymphadenopathy. No JVD. CARDIOVASCULAR: Regular rate and rhythm. LUNGS: Clear to auscultation bilaterally. ABDOMEN: Good bowel sounds. Soft and nontender. EXTREMITIES: No clubbing or cyanosis. NEUROLOGIC: Nonfocal. EXTREMITIES: No clubbing or cyanosis. Right knee is bandaged with no seepage. ASSESSMENT AND PLAN: 1. Alzheimer's. We will continue with his medications at the time of discharge. 2. Hypertension. We will continue to monitor, restart his home medicines. 3. Hyperlipidemia. We will continue with his Lipitor once he is discharged. 4. Anemia. We will check his CBC. 5. Benign prostatic hypertrophy. We will continue with his home medications at the time of discharge. 6. Right knee pain. We will continue with his physical therapy and ambulation. Please see the hospital chart for full details. MD SNEHA Ingram/MAYTE /[id number]
[2018-09-25 12:50] VITALS: BP 126/62
--- NOTE | 2018-09-25 15:50 | NUR ---
DC INSTRUCTIONS GIVEN. PT VERBALIZED UNDERSTANDING PAIN MED WILL BE FAXED TO PT PHARMACY BY MD DESEAN HOYOS DC PRESSURE DRESSING APPLIED AND TAPED PT IS NOW OFF UNIT TO HOME
[2018-09-25] MEDS ORDERED: ATORVASTATIN 20 MG TAB PO SCH (21:00)
== END 2018-09-25 15:43 | disposition home or self-care (01) ==
LOC: OR 07:34 → PACU V 10:38 → MED/SURG 11:43
PROVIDERS: ADMIT Specialist; ATTEND Specialist
DX: M17.11 Unilateral primary osteoarthritis, right knee (principal); G30.9 Alzheimer's disease, unspecified; F02.80 Dementia in other diseases classified elsewhere, unspecified severity, without behavioral disturbance, psychotic disturbance, mood disturbance, and anxiety; I10 Essential (primary) hypertension; E78.00 Pure hypercholesterolemia, unspecified; Z87.891 Personal history of nicotine dependence; Z79.82 Long term (current) use of aspirin; Z96.641 Presence of right artificial hip joint; D64.9 Anemia, unspecified; N40.0 Benign prostatic hyperplasia without lower urinary tract symptoms
CPT/HCPCS: 27447; 36415 ×2; 73560; 85014; 85018; 85025; 86850; 86900; 86920; 97116 ×2; 97162; 97530; C1713; G0378 ×2; J0131 ×2; J0171; J0690 ×2; J1100; J1885; J2001 ×2; J2405; J2704; J2795; J7030

== ENCOUNTER → 2018-09-30 | Outpatient (CLI) | payer MEDICARE ==
[~2018-09-30] MED LIST changes: -ROPIVACAINE 246.25 MG, EPINEPHRINE HCL 1:1000 1ML 0.5 MG, CLONIDINE HCL 0.08 MG, KETORO... INJ ONE; +metoprolol
== END ==
LOC: RAD 16:42
PROVIDERS: ATTEND Specialist
DX: R22.41 Localized swelling, mass and lump, right lower limb (principal)
CPT/HCPCS: 93971